=== PATIENT | female | born 1990 | race African-American/Black ===

== ENCOUNTER 2018-09-27 13:01 | Emergency (ER) | payer OTHER ==
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
[2018-09-27 13:22] VITALS: BP 139/67; PULSE 87; TEMP 98.4; BMI 30.1
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
== END 2018-09-27 15:07 | disposition home or self-care (01) ==
LOC: JERFT 13:01
DX: S13.4XXA Sprain of ligaments of cervical spine, initial encounter (principal); V43.52XA Car driver injured in collision with other type car in traffic accident, initial encounter; Y93.89 Activity, other specified; Y92.410 Unspecified street and highway as the place of occurrence of the external cause
CPT/HCPCS: 99281-25